=== PATIENT | male | born 1975 | race Caucasian/White ===

== ENCOUNTER 2021-03-28 15:22 | Outpatient (CLI) | payer BC | END 2021-03-28 15:23 | disposition home or self-care (01) | LOC: LABBT 15:22 | PROVIDERS: ATTEND Surgery | DX: Z01.812 Encounter for preprocedural laboratory examination (principal); K60.3 Anal fistula; Z20.822 Contact with and (suspected) exposure to COVID-19 | CPT/HCPCS: U0003; U0005 ==

== ENCOUNTER 2022-03-16 00:21 | Inpatient (IN) | payer BC ==
[2022-03-16] MEDS ORDERED: Nitroglycerin 0.4 MG TAB (25 Tab Bottle) SL PRN (03:37)
[2022-03-16] MEDS: Acetaminophen 325 MG TAB PO PRN ×2 (03:43→20:05)
[2022-03-16 04:55] LABS: Hemoglobin A1c 5.8 % (4.0-6.0)
[2022-03-16] MEDS ORDERED: Nicotine 14 MG PATCH TD SCH (05:00)
[2022-03-16 05:13] LABS: Troponin I 0.472 ng/mL (< 0.028)
[2022-03-16 05:28] LABS: HBSAg Index 0.26 S/CO (0-0.99); Hep B Surf Ag Non-Reactive S/CO (NonReactive); Hep C IgG Ab Non-Reactive (NonReactive); Hep C Index 0.08 S/CO (0-0.79); Thyroid Stimulating Hormone 0.9872 uIU/mL (0.35-4.94)
[2022-03-16] MEDS ORDERED: Clopidogrel Bisulfate 300 MG TAB PO SCH (06:00)
[2022-03-16 06:08] LABS: Hemoglobin 14.9 g/dL (14.0-18.0); Platelet Count 261 thou/uL (130-400)
[2022-03-16 06:15] LABS: ALT (SGPT) 73 U/L (8-55); AST (SGOT) 36 U/L (5-34); Albumin 3.7 g/dL (3.5-5.0); Alkaline Phosphatase 87 U/L (40-110); Anion Gap 15 mmol/L (10-20); BUN (Urea Nitrogen) 13 mg/dL (8.9-20.6); Bilirubin, Total 1.2 mg/dL (0.2-1.2); Calc. Creatinine Clearance 142 mL/min (70-130); Calcium 9.2 mg/dL (7.8-10.44); Carbon Dioxide 22 mmol/L (22-29); Chloride 108 mmol/L (98-107); Estimated GFR 108; Globulin 3.1 g/dL (2.4-3.5); Glucose 99 mg/dL (70-105); Potassium 3.8 mmol/L (3.5-5.1); Protein, Total 6.8 g/dL (6.0-8.3); Sodium 141 mmol/L (136-145)
[2022-03-16] MEDS: Heparin 10,000 UNITS/ 10 ML VIAL SLOW IVP SCH ×3 (06:36→20:09)
[2022-03-16] MEDS: Heparin 25,000 units/D5W 500 ML IVPB SCH (06:36)
[2022-03-16 06:59] LABS: Critical Call Chem Troponin I RESULT DECREASING; Troponin I 0.413 ng/mL (< 0.028)
[2022-03-16] MEDS: Aspirin Chewable 81 MG TAB PO SCH (11:48)
[2022-03-16] MEDS ORDERED: Communication Order-Pharmacy FS SCH (14:15)
[2022-03-16 16:57] LABS: Amphetamine Not Detected (NotDetected); Barbiturates Screen Not Detected (NotDetected); Benzodiazepine Screen Not Detected (NotDetected); Cocaine Metabolite Screen Not Detected (NotDetected); Methadone Not Detected (NotDetected); Methamphetamine Not Detected (NotDetected); Opiate Screen Not Detected (NotDetected); Oxycodone Screen Not Detected (NotDetected); Phencyclidine (PCP) Not Detected (NotDetected); THC/Cannabinoid Screen Detected (NotDetected); Tricyclic Screen Not Detected (NotDetected)
[2022-03-16] MEDS: Rosuvastatin 20 MG TAB PO SCH (20:04)
[2022-03-16] MEDS: Nitroglycerin 2% Ointment 1 INCH/1 GM Packet TOP SCH (20:05)
[2022-03-16] MEDS ORDERED: Atorvastatin Calcium 40 MG TAB PO SCH (21:00)
[2022-03-17] MEDS: Heparin 25,000 units/D5W 500 ML IVPB SCH ×2 (01:21→17:54)
[2022-03-17 02:59] LABS: Cardiac Risk 7.2 (Less than 4.5)
[2022-03-17] MEDS: Nitroglycerin 2% Ointment 1 INCH/1 GM Packet TOP SCH ×2 (10:45→21:18)
[2022-03-17] MEDS: Aspirin Chewable 81 MG TAB PO SCH (10:46)
[2022-03-17] MEDS: Clopidogrel Bisulfate 75 MG TAB PO SCH (10:46)
[2022-03-17] MEDS: Heparin 10,000 UNITS/ 10 ML VIAL SLOW IVP SCH (11:26)
[2022-03-17] MEDS: Rosuvastatin 20 MG TAB PO SCH (21:18)
[2022-03-18 04:38] LABS: Troponin I 0.251 ng/mL (< 0.028)
[2022-03-18] MEDS: Clopidogrel Bisulfate 75 MG TAB PO SCH (05:53)
[2022-03-18] MEDS: Aspirin Chewable 81 MG TAB PO SCH (05:53)
[2022-03-18] MEDS ORDERED: Sodium Chloride 0.9% 1,000 ML IV SCH ×2 (06:00→13:02)
[2022-03-18 06:08] LABS: Hemoglobin 15.2 g/dL (14.0-18.0); Platelet Count 256 thou/uL (130-400)
[2022-03-18] MEDS: Nitroglycerin 2% Ointment 1 INCH/1 GM Packet TOP SCH ×2 (10:33→22:09)
[2022-03-18] MEDS ORDERED: Losartan 25 MG TAB PO SCH (11:00)
[2022-03-18] MEDS ORDERED: Lidocaine 1% (PF) 30 ML VIAL ONE (11:09)
[2022-03-18] MEDS ORDERED: Heparin 10,000 UNITS/ 10 ML VIAL ONE (11:09)
[2022-03-18] MEDS ORDERED: Midazolam HCl 2 mg/2 ml Vial ONE (11:48)
[2022-03-18] MEDS ORDERED: Fentanyl 100 MCG/2 ML VIAL ONE (11:48)
[2022-03-18] MEDS ORDERED: Protamine Sulfate 50 MG/5 ML VIAL ONE (12:27)
[2022-03-18] MEDS ORDERED: Nitroglycerin 0.4 MG TAB (25 Tab Bottle) SL PRN (13:01)
[2022-03-18] MEDS ORDERED: Sodium Chloride 0.9% 200 ML IV PRN (13:01)
[2022-03-18] MEDS ORDERED: Acetaminophen/Codeine 30-300mg Tablet PO PRN ×2 (13:01)
[2022-03-18] MEDS ORDERED: Iopamidol 370 76% 100 ML VIAL ONE (14:36)
[2022-03-18] MEDS ORDERED: Iopamidol 370 76% 50 ML VIAL FS ONE (14:36)
[2022-03-18] MEDS: Rosuvastatin 20 MG TAB PO SCH (22:09)
[2022-03-19] MEDS ORDERED: Losartan 25 MG TAB PO SCH (09:00)
[2022-03-19] MEDS: Aspirin Chewable 81 MG TAB PO SCH (09:07)
[2022-03-19] MEDS: Nitroglycerin 2% Ointment 1 INCH/1 GM Packet TOP SCH (09:08)
[2022-03-19 11:56] VITALS: TEMP 98.1
[2022-03-19 12:35] VITALS: BP 168/95
== END 2022-03-19 13:35 | disposition short-term general hospital (02) | DRG 282 ==
LOC: 2NO 00:21 → OBSVTOIN 03-18 11:56
PROVIDERS: ADMIT Student in an Organized Health Care Education/Training Program; ATTEND Student in an Organized Health Care Education/Training Program
PROC: 4A023N7 Measurement of Cardiac Sampling and Pressure, Left Heart, Percutaneous Approach (ICD-10-PCS; principal; 2022-03-18)
PROC: B2111ZZ Fluoroscopy of Multiple Coronary Arteries using Low Osmolar Contrast (ICD-10-PCS; 2022-03-18)
PROC: B2151ZZ Fluoroscopy of Left Heart using Low Osmolar Contrast (ICD-10-PCS; 2022-03-18)
DX: I21.4 Non-ST elevation (NSTEMI) myocardial infarction (principal); Z20.822 Contact with and (suspected) exposure to COVID-19; I25.10 Atherosclerotic heart disease of native coronary artery without angina pectoris; I10 Essential (primary) hypertension; E78.00 Pure hypercholesterolemia, unspecified; F17.210 Nicotine dependence, cigarettes, uncomplicated; F12.10 Cannabis abuse, uncomplicated; R74.01 Elevation of levels of liver transaminase levels; Z98.890 Other specified postprocedural states
CPT/HCPCS: 36415; 80053; 80061; 80306; 83036; 84443; 84484; 85014; 85018; 85049; 85347; 85730; 86803; 87340; 93005; 93010; 93306; 93458; 93798; 94760; 96374; 96376; 99152; 99153; G0378; J1644; J2001; J2250; J2720; J3010; J7050; Q9967